=== PATIENT | male | born 1960 | race Hispanic/Latino ===

== ENCOUNTER 2022-11-06 09:24 | Emergency (ER) | payer OTHER ==
[~2022-11-06] VITALS: Ht 162.6 cm; Wt 104.3 kg
[2022-11-06 10:04] LABS: BASOPHILS % (AUTO) 0.5 % (0.0-5.0); EOSINOPHILS % (AUTO) 1.8 % (0.0-8.0); HEMATOCRIT 41.5 % (42-54); LYMPHOCYTES % (AUTO) 10.4 % (21.0-51.0); MEAN CORPUSCULAR HEMOGLOBIN 25.5 pg (27.0-33.0); MEAN CORPUSCULAR HGB CONC 33.5 g/dL (32.0-36.0); MONOCYTES % (AUTO) 7.3 % (3.0-13.0); NEUTROPHILS % (AUTO) 79.2 % (40.0-77.0); PLATELET COUNT (AUTO) 216 K/uL (130-400); RED BLOOD CELL COUNT(AUTO) 5.46 MIL/uL (4.50-6.20); RED CELL DISTRIBUTION WIDTH 15.5 % (11.0-15.5); WHITE BLOOD COUNT (AUTO) 12.4 K/uL (4.8-10.8)
[2022-11-06 10:18] LABS: ALBUMIN 3.4 g/dL (3.5-5.0); CREATININE 1.3 mg/dL (0.5-1.5); POTASSIUM 3.1 mmol/L (3.5-5.1); TOTAL PROTEIN, SERUM 7.6 g/dL (6.0-8.3)
[2022-11-06 10:41] LABS: APPEARANCE,URINE CLOUDY (CLEAR); BILIRUBIN,URINE 1 mg/dL (NEGATIVE); COLOR,URINE YELLOW (YELLOW); GLUCOSE, URINE (UA) 70 mg/dL (NEGATIVE); KETONES,URINE 20 mg/dL (NEGATIVE); LEUKOCYTE ESTERASE ,URINE NEGATIVE Leu/uL (NEGATIVE); NITRATE,URINE NEGATIVE (NEGATIVE); OCCULT BLOOD,URINE NEGATIVE (NEGATIVE); PROTEIN,URINE 100 mg/dL (NEGATIVE); UROBILINOGEN,URINE 6 mg/dL (0.2-1.0)
[2022-11-06 10:54] LABS: BACTERIA,URINE FEW /HPF (None Seen); HYALINE CASTS, URINE 26-50 /LPF (0-1 /LPF); MUCUS,URINE MANY LPF (None Seen); SQUAMOUS EPITHELIAL CELL,UR MOD /HPF (0-2)
[2022-11-06 11:57] VITALS: BP 124/88
[2022-11-06] MEDS ORDERED: NITR100C4 PO (12:39)
[2022-11-06] MEDS ORDERED: KCL 20 MEQ ERTAB PO ONE (13:00)
== END 2022-11-06 12:54 | disposition home or self-care (01) ==
LOC: EDH 09:24
DX: N39.0 Urinary tract infection, site not specified (principal); E87.6 Hypokalemia; D72.829 Elevated white blood cell count, unspecified; M25.561 Pain in right knee; M25.562 Pain in left knee; I10 Essential (primary) hypertension
CPT/HCPCS: 36415; 71045; 80053; 81001; 83735; 83880; 85025; 87077; 87088; 87186; 93005